=== PATIENT | male | born 1985 | race Two or more races ===

== ENCOUNTER 2022-05-17 13:49 | Emergency (ER) | payer OTHER ==
[~2022-05-17] VITALS: Ht 170.2 cm; Wt 68.0 kg
[2022-05-17] MEDS ORDERED: TUSNEL LIQUID178 ML PO (17:42)
[2022-05-17] MEDS ORDERED: ZITHROMAX500 MG PO (17:42)
== END 2022-05-17 18:10 | disposition home or self-care (01) ==
LOC: ER 13:49
DX: B34.9 Viral infection, unspecified (principal); Z20.822 Contact with and (suspected) exposure to COVID-19